=== PATIENT | male | born 1970 ===

== ENCOUNTER 2024-04-23 09:54 | Emergency (ER) | payer SELFPAY ==
[2024-04-23] MEDS ORDERED: Naloxone 0.4 MG/ML SDV IVPUSH PRN (10:18)
[2024-04-23] MEDS ORDERED: Sodium Chloride 0.9% 10 ML Syringe FLUSH PRN (10:18)
[2024-04-23] MEDS: Sodium Chloride 0.9% 1,000 ML IV ONE (13:26)
[2024-04-23] MEDS: HYDROmorphone 2 MG/ML SDV IVPUSH ONE (13:26)
[2024-04-23] MEDS: Ondansetron 4 MG/2 ML SDV IVPUSH ONE (13:26)
== END 2024-04-23 10:18 | disposition left against medical advice (07) ==
LOC: FB.ED 09:54
DX: Z53.21 Procedure and treatment not carried out due to patient leaving prior to being seen by health care provider (principal)